=== PATIENT | male | born 1990 | race Caucasian/White ===

== ENCOUNTER 2017-01-08 21:45 | Emergency (ER) | payer MEDICARE, OTHER, MEDICAID ==
[~2017-01-08] VITALS: Ht 167.6 cm; Wt 69.1 kg
[~2017-01-08 21:45] MED LIST: NO HOME MEDICATIONS; TOPROL XL 50MG50 MG PO; ZESTRIL 5MG5 MG
[2017-01-08 21:49] VITALS: BP 148/87; PULSE 101; TEMP 98.6
[2017-01-08] MEDS ORDERED: LEXAPRO 10MG10 MG PO (21:53)
== END 2017-01-08 23:45 | disposition home or self-care (01) ==
LOC: COL.ER 21:45
DX: S50.812A Abrasion of left forearm, initial encounter (principal); S80.812A Abrasion, left lower leg, initial encounter; W17.89XA Other fall from one level to another, initial encounter; Y92.007 Garden or yard of unspecified non-institutional (private) residence as the place of occurrence of the external cause; F41.9 Anxiety disorder, unspecified; Z85.820 Personal history of malignant melanoma of skin

== ENCOUNTER → 2017-05-17 | Outpatient (CLI) | payer MEDICARE, MEDICAID ==
[~2017-05-17] MED LIST changes: +LEXAPRO 10MG10 MG PO
== END ==
LOC: COL.CARD 05-10 09:00
DX: D49.6 Neoplasm of unspecified behavior of brain (principal)
CPT/HCPCS: A9585

== ENCOUNTER → 2017-06-08 | Outpatient (RCR) | payer MEDICARE, MEDICAID | LOC: MKS.ESL.PT | DX: R26.89 Other abnormalities of gait and mobility (principal); R29.6 Repeated falls; H53.8 Other visual disturbances; Z85.841 Personal history of malignant neoplasm of brain; Z98.890 Other specified postprocedural states | CPT/HCPCS: G8981-GP; G8982-GP ==

== ENCOUNTER 2017-09-04 09:15 | Outpatient (RCR) | payer MEDICARE, MEDICAID | END 2017-09-12 | LOC: MKS.ESL.PT | DX: R27.8 Other lack of coordination (principal); R29.6 Repeated falls ==

== ENCOUNTER 2017-11-26 02:06 | Emergency (ER) | payer MEDICARE, MEDICAID ==
[~2017-11-26] VITALS: Ht 167.6 cm; Wt 63.6 kg
[2017-11-26 02:10] VITALS: BP 133/81; TEMP 97.4
[2017-11-26] MEDS ORDERED: ZOLOFT 25MG25 MG PO (02:14)
[2017-11-26 03:59] VITALS: PULSE 77
== END 2017-11-26 03:10 | disposition home or self-care (01) ==
LOC: COL.ER 02:06
DX: S01.111A Laceration without foreign body of right eyelid and periocular area, initial encounter (principal); Z86.69 Personal history of other diseases of the nervous system and sense organs; Z98.890 Other specified postprocedural states; Y92.410 Unspecified street and highway as the place of occurrence of the external cause; W01.198A Fall on same level from slipping, tripping and stumbling with subsequent striking against other object, initial encounter

== ENCOUNTER 2018-01-08 19:25 | Emergency (ER) | payer MEDICARE, MEDICAID ==
[~2018-01-08] VITALS: Ht 167.6 cm; Wt 62.7 kg
[~2018-01-08 19:25] MED LIST changes: +ZOLOFT 25MG25 MG PO
[2018-01-08 19:28] VITALS: BP 150/70; PULSE 86; TEMP 97.8
== END 2018-01-08 20:52 | disposition home or self-care (01) ==
LOC: COL.ER 19:25
DX: S01.81XA Laceration without foreign body of other part of head, initial encounter (principal); W19.XXXA Unspecified fall, initial encounter; W22.8XXA Striking against or struck by other objects, initial encounter; Y92.22 Religious institution as the place of occurrence of the external cause

== ENCOUNTER → 2018-02-27 | Outpatient (CLI) | payer MEDICARE, MEDICAID | LOC: COL.RAD 12:58 | DX: G93.89 Other specified disorders of brain (principal); Z98.2 Presence of cerebrospinal fluid drainage device; Z86.03 Personal history of neoplasm of uncertain behavior | CPT/HCPCS: A9585 ==

== ENCOUNTER 2018-03-28 21:27 | Emergency (ER) | payer MEDICARE, MEDICAID ==
[~2018-03-28] VITALS: Ht 167.6 cm; Wt 67.3 kg
[2018-03-28 21:39] VITALS: BP 117/72; TEMP 98.6
[2018-03-28] MEDS ORDERED: KLONOPIN 0.5MG0.5 MG PO (22:55)
[2018-03-28] MEDS ORDERED: CELEXA 20MG20 MG/TAB PO (22:55)
[2018-03-29 00:30] VITALS: PULSE 97
== END 2018-03-29 00:30 | disposition home or self-care (01) ==
LOC: COL.ER 21:27
DX: S01.81XA Laceration without foreign body of other part of head, initial encounter (principal); F32.9 Major depressive disorder, single episode, unspecified; F41.9 Anxiety disorder, unspecified; Z86.73 Personal history of transient ischemic attack (TIA), and cerebral infarction without residual deficits; Z98.890 Other specified postprocedural states; Z85.841 Personal history of malignant neoplasm of brain; Z23 Encounter for immunization; W20.8XXA Other cause of strike by thrown, projected or falling object, initial encounter; Y92.009 Unspecified place in unspecified non-institutional (private) residence as the place of occurrence of the external cause

== ENCOUNTER 2018-04-04 17:59 | Emergency (ER) | payer MEDICARE, MEDICAID ==
[~2018-04-04 17:59] MED LIST changes: +CELEXA 20MG20 MG/TAB PO; +KLONOPIN 0.5MG0.5 MG PO
[2018-04-04 18:48] VITALS: BP 146/78; PULSE 79; TEMP 98.6
== END 2018-04-04 18:51 | disposition home or self-care (01) ==
LOC: COL.ER 17:59
DX: S01.81XD Laceration without foreign body of other part of head, subsequent encounter (principal); X58.XXXD Exposure to other specified factors, subsequent encounter

== ENCOUNTER 2018-05-21 15:00 | Outpatient (RCR) | payer MEDICARE, MEDICAID | END 2018-06-28 | disposition home or self-care (01) | LOC: MKS.ESL.OT | DX: Z48.3 Aftercare following surgery for neoplasm (principal); R27.0 Ataxia, unspecified; Z85.841 Personal history of malignant neoplasm of brain | CPT/HCPCS: G8990-GO; G8991-GO ==

== ENCOUNTER 2018-09-11 21:19 | Emergency (ER) | payer MEDICARE, MEDICAID ==
[~2018-09-11] VITALS: Ht 167.6 cm; Wt 64.5 kg
[2018-09-11 21:23] VITALS: TEMP 97.5
[2018-09-11 23:16] VITALS: BP 131/76; PULSE 64
== END 2018-09-11 23:20 | disposition home or self-care (01) ==
LOC: COL.ER 21:19
DX: S50.01XA Contusion of right elbow, initial encounter (principal); F41.9 Anxiety disorder, unspecified; Z87.891 Personal history of nicotine dependence; W19.XXXA Unspecified fall, initial encounter; Y92.410 Unspecified street and highway as the place of occurrence of the external cause

== ENCOUNTER 2019-07-10 14:43 | Emergency (ER) | payer MEDICARE, MEDICAID ==
[~2019-07-10] VITALS: Ht 167.6 cm; Wt 65.9 kg
[2019-07-10 14:59] VITALS: BP 112/62; TEMP 98.5
[2019-07-10 15:59] VITALS: PULSE 88
== END 2019-07-10 16:00 | disposition home or self-care (01) ==
LOC: COL.ER 14:43
DX: S60.221A Contusion of right hand, initial encounter (principal); W22.8XXA Striking against or struck by other objects, initial encounter; Y92.009 Unspecified place in unspecified non-institutional (private) residence as the place of occurrence of the external cause

== ENCOUNTER 2019-12-20 22:16 | Emergency (ER) | payer MEDICARE, MEDICAID ==
[~2019-12-20] VITALS: Ht 170.2 cm; Wt 66.4 kg
[2019-12-20 22:52] VITALS: BP 127/67; PULSE 70; TEMP 98.3
== END 2019-12-20 23:04 | disposition home or self-care (01) ==
LOC: COL.ER 22:16
DX: S01.01XA Laceration without foreign body of scalp, initial encounter (principal); R40.2412 Glasgow coma scale score 13-15, at arrival to emergency department; W10.9XXA Fall (on) (from) unspecified stairs and steps, initial encounter

== ENCOUNTER → 2019-12-26 | Outpatient (CLI) | payer MEDICARE, MEDICAID ==
[~2019-12-26] MED LIST changes: +FLOMAX 0.40.4 MG/CAP PO
[2019-12-26 18:55] VITALS: BP 120/78; PULSE 81; TEMP 98.6
== END ==
LOC: COL.ER 18:30
DX: Z48.02 Encounter for removal of sutures (principal)

== ENCOUNTER 2020-01-25 09:57 | Emergency (ER) | payer MEDICARE, MEDICAID ==
[~2020-01-25] VITALS: Ht 170.2 cm; Wt 66.8 kg
[2020-01-25] MEDS ORDERED: DOXYCYCLINE 10100 MG PO (10:41)
[2020-01-25 11:09] LABS: STREP SCREEN NEGATIVE
[2020-01-25 11:23] VITALS: BP 110/70; PULSE 76; TEMP 97.9
== END 2020-01-25 11:27 | disposition home or self-care (01) ==
LOC: COL.ER 09:57
PROVIDERS: Emergency Medicine
DX: J06.9 Acute upper respiratory infection, unspecified (principal)

== ENCOUNTER → 2020-08-03 | Outpatient (CLI) | payer MEDICARE, MEDICAID ==
[~2020-08-03] MED LIST changes: +DOXYCYCLINE 10100 MG PO
== END ==
LOC: COL.RAD 13:35
DX: G93.89 Other specified disorders of brain (principal); Z85.841 Personal history of malignant neoplasm of brain; Z98.2 Presence of cerebrospinal fluid drainage device
CPT/HCPCS: A9585